=== PATIENT | female | born 1985 | race Caucasian/White ===

== ENCOUNTER 2020-01-29 03:34 | Observation (INO) | payer MEDICAID ==
[~2020-01-29] VITALS: Ht 165 cm; Wt 77.1 kg
[2020-01-29] MEDS ORDERED: CALCIUM (04:04)
[2020-01-29] MEDS ORDERED: PNV1TABL50 PO (04:04)
[2020-01-29] MEDS ORDERED: FERR325T6 PO (04:04)
[2020-01-29 04:47] LABS: CLARITY URINE CLEAR (CLEAR); COLOR URINE YELLOW (YELLOW); KETONES URINE NEGATIVE (NEGATIVE); LEUKOCYTE ESTERASE URINE 2+ (NEGATIVE); NITRITE URINE NEGATIVE (NEGATIVE); OCCULT BLOOD URINE NEGATIVE (NEGATIVE); PROTEIN URINE NEGATIVE (NEGATIVE); SPECIFIC GRAVITY URINE 1.005 (1.005-1.030)
[2020-01-29] MEDS: LACTATED RINGERS 1,000 ML IV SCH ×2 (05:07→05:36)
[2020-01-29 09:44] LABS: BASOPHILS % 0.1 % (0.0-2.0); EOSINOPHILS % 0.1 % (0.0-5.0); HEMATOCRIT. 35.1 % (36.0-48.0); HEMOGLOBIN. 11.7 g/dL (12.0-16.0); LYMPHOCYTES % 16.9 % (20.0-50.0); MEAN CORPUSCULAR HEMOGLOBIN 30.3 pg (28.0-32.0); MEAN CORPUSCULAR VOLUME 90.8 fL (81.0-99.0); MEAN PLATELET VOLUME 10.6 fl (7.4-10.4); NEUTROPHILS % 75.9 % (40.0-76.0); PLATELET 99 x1000/uL (130-400); RED BLOOD CELL COUNT 3.87 mill/uL (4.2-5.4); RED CELL DISTRIBUTION WIDTH 18.8 % (11.6-14.6)
[2020-01-29 09:54] LABS: PROTHROMBIN TIME 10.6 sec (9.6-11.0)
[2020-01-29 12:17] LABS: HEPATITIS B SURFACE ANTIGEN NEGATIVE
[2020-01-30 10:53] LABS: *AMPHETAMINES SCREEN URINE NEGATIVE (NEGATIVE); *BARBITURATES SCREEN URINE NEGATIVE (NEGATIVE); *BENZODIAZEPINES SCREEN URINE NEGATIVE (NEGATIVE); *COCAINE SCREEN URINE NEGATIVE (NEGATIVE); METHADONE URINE SCREEN NEGATIVE (NEGATIVE)
[2020-01-30 10:54] LABS: CANNABINOID URINE SCREEN NEGATIVE (NEGATIVE); OPIATES URINE SCREEN NEGATIVE (NEGATIVE); PHENCYCLIDINE URINE SCREEN NEGATIVE (NEGATIVE)
== END 2020-01-29 11:20 | disposition home or self-care (01) ==
LOC: 8 EST LDRP 03:34
PROVIDERS: ADMIT Obstetrics & Gynecology; ATTEND Obstetrics & Gynecology
DX: O98.513 Other viral diseases complicating pregnancy, third trimester (principal); U07.1 COVID-19; O62.9 Abnormality of forces of labor, unspecified; O26.893 Other specified pregnancy related conditions, third trimester; M54.5 Low back pain; Z3A.38 38 weeks gestation of pregnancy; Z79.899 Other long term (current) drug therapy
CPT/HCPCS: 36415; 76805; 76818; 80305; 81003; 85025; 85610; 85730; 86592; 86703; 86762; 86850; 86900; 86901; 87340; 99281; G0378; U0003; J7120

== ENCOUNTER 2020-02-14 07:46 | Inpatient (IN) | payer MEDICAID ==
[~2020-02-14] VITALS: Ht 160 cm; Wt 77.1 kg
[2020-02-14] MEDS: DEXT 5%/LR + PITOCIN 20UNITS/L 1,000 ML IV SCH ×2 (02:05→13:32)
[~2020-02-14 07:46] MED LIST: CALCIUM; FERR325T6 PO; PNV1TABL50 PO
[2020-02-14] MEDS ORDERED: FENTANYL CITRATE/PF 50MCG/ML 2ML VIAL ONE (08:24)
[2020-02-14] MEDS ORDERED: EPHEDRINE SULFATE 50MG/ML VIAL ONE (08:24)
[2020-02-14] MEDS ORDERED: METOCLOPRAMIDE HCL 10MG/2ML VIAL ONE (08:24)
[2020-02-14] MEDS ORDERED: PHENYLEPHRINE HCL 10 MG/ML 1ML (IV VIAL) IV ONE (08:24)
[2020-02-14] MEDS ORDERED: MORPHINE SULFATE/PF 1MG/ML 10ML AMP ONE (08:24)
[2020-02-14] MEDS ORDERED: OXYTOCIN 10 UNITS/ML 1ML ONE ×2 (08:24→10:05)
[2020-02-14] MEDS ORDERED: ONDANSETRON HCL 4MG/2ML INJ ONE (08:24)
[2020-02-14] MEDS ORDERED: GLYCOPYRROLATE 0.2 MG/ML 2ML VIAL ONE (08:24)
[2020-02-14] MEDS ORDERED: LACTATED RINGERS 1,000 ML IV SCH (08:28)
[2020-02-14] MEDS ORDERED: DEXT 5%/LR + PITOCIN 20UNITS/L 1,000 ML IV SCH (08:28)
[2020-02-14] MEDS ORDERED: RHO(D) IMMUNE GLOBULIN 300 MCG/SYR IM PRN ×2 (08:30→10:30)
[2020-02-14] MEDS ORDERED: CITRIC ACID/SODIUM CITRATE SOLN 30ML UDC PO NR (08:45)
[2020-02-14] MEDS ORDERED: AMPICILLIN 2000MG in SODIUM CHLORIDE 0.9% 100ML IV NR (09:00)
[2020-02-14 09:01] LABS: BASOPHILS % 0.1 % (0.0-2.0); EOSINOPHILS % 0.2 % (0.0-5.0); HEMATOCRIT. 39.2 % (36.0-48.0); LYMPHOCYTES % 29.4 % (20.0-50.0); MEAN CORPUSCULAR HEMOGLOBIN 30.6 pg (28.0-32.0); MEAN CORPUSCULAR VOLUME 92.1 fL (81.0-99.0); MEAN PLATELET VOLUME 9.7 fl (7.4-10.4); MONOCYTES % 6.6 % (2.0-8.0); NEUTROPHILS % 63.7 % (40.0-76.0); PLATELET 175 x1000/uL (130-400); RED BLOOD CELL COUNT 4.26 mill/uL (4.2-5.4); RED CELL DISTRIBUTION WIDTH 18.8 % (11.6-14.6)
[2020-02-14 09:06] LABS: PARTIAL THROMBOPLASTIN TIME 27.7 sec (23.4-31.0); PROTHROMBIN TIME 10.3 sec (9.6-11.0)
[2020-02-14] MEDS ORDERED: CEFAZOLIN SODIUM 1000MG/VIAL ONE (09:18)
[2020-02-14] MEDS ORDERED: KETOROLAC 60MG/2ML VIAL IM ONE (10:09)
[2020-02-14] MEDS ORDERED: DIPHENHYDRAMINE 50MG/ML VIAL ONE (10:09)
[2020-02-14] MEDS ORDERED: LANOLIN OINT 7GM TUBE TOP PRN (10:30)
[2020-02-14] MEDS ORDERED: ONDANSETRON HCL 4MG/2ML INJ IV PRN (10:30)
[2020-02-14] MEDS ORDERED: HEMORRHOIDAL SUPP PR PRN (10:30)
[2020-02-14] MEDS ORDERED: IBUPROFEN 400MG TABLET PO PRN (10:30)
[2020-02-14] MEDS ORDERED: HYDROCODONE/ACETAMINOPHEN 5/325MG TABLET PO PRN (10:30)
[2020-02-14] MEDS ORDERED: BISACODYL 10MG SUPP PR PRN (10:30)
[2020-02-14] MEDS ORDERED: KETOROLAC 30MG/ML VIAL IV SCH (11:30)
[2020-02-14] MEDS ORDERED: NALOXONE HCL 0.4 MG/ML 1ML VIAL IV PRN (11:30)
[2020-02-14] MEDS ORDERED: DIPHENHYDRAMINE 50MG/ML VIAL IV PRN (11:30)
[2020-02-14] MEDS ORDERED: BUTORPHANOL TARTRATE 2 MG/ML VIAL IV PRN (11:30)
[2020-02-14 11:43] LABS: CLARITY URINE CLEAR (CLEAR); COLOR URINE YELLOW (YELLOW); KETONES URINE NEGATIVE (NEGATIVE); LEUKOCYTE ESTERASE URINE 1+ (NEGATIVE); NITRITE URINE NEGATIVE (NEGATIVE); OCCULT BLOOD URINE TRACE (NEGATIVE); PH URINE 7.5 (4.5-8.0); PROTEIN URINE NEGATIVE (NEGATIVE); SPECIFIC GRAVITY URINE 1.007 (1.005-1.030); UROBILINOGEN URINE 0.2 E.U./dL (0.2-1.0)
[2020-02-14 12:24] LABS: *AMPHETAMINES SCREEN URINE NEGATIVE (NEGATIVE); *BARBITURATES SCREEN URINE NEGATIVE (NEGATIVE); *BENZODIAZEPINES SCREEN URINE NEGATIVE (NEGATIVE); *COCAINE SCREEN URINE NEGATIVE (NEGATIVE); CANNABINOID URINE SCREEN NEGATIVE (NEGATIVE); OPIATES URINE SCREEN NEGATIVE (NEGATIVE); PHENCYCLIDINE URINE SCREEN NEGATIVE (NEGATIVE)
[2020-02-14 12:25] LABS: METHADONE URINE SCREEN NEGATIVE (NEGATIVE)
[2020-02-14 14:24] LABS: HEPATITIS B SURFACE ANTIGEN NEGATIVE
[2020-02-14 15:00] VITALS: BP 94/55
[2020-02-14] MEDS ORDERED: AMPICILLIN 1,000 MG in SODIUM CHLORIDE 0.9% 50 ML IV SCH (15:00)
[2020-02-14] MEDS: MAGNESIUM/ALUMINUM HYDROXIDE/SIMETHICONE 30ML UDC PO SCH (17:30)
[2020-02-14 18:09] VITALS: BP 95/52
[2020-02-14 20:00] VITALS: BP 98/53
[2020-02-14] MEDS ORDERED: DIPHENHYDRAMINE 25MG CAPSULE PO PRN (21:00)
[2020-02-14] MEDS: SIMETHICONE 80MG TABLET CHEW PO SCH (21:00)
[2020-02-15 00:01] VITALS: BP 100/52
[2020-02-15 06:35] LABS: BASOPHILS % 0.1 % (0.0-2.0); EOSINOPHILS % 0.3 % (0.0-5.0); HEMATOCRIT. 31.9 % (36.0-48.0); HEMOGLOBIN. 10.6 g/dL (12.0-16.0); LYMPHOCYTES % 16.8 % (20.0-50.0); MEAN CORPUSCULAR HEMOGLOBIN 30.7 pg (28.0-32.0); MEAN PLATELET VOLUME 9.8 fl (7.4-10.4); MONOCYTES % 5.7 % (2.0-8.0); NEUTROPHILS % 77.1 % (40.0-76.0); PLATELET 120 x1000/uL (130-400); RED BLOOD CELL COUNT 3.43 mill/uL (4.2-5.4); RED CELL DISTRIBUTION WIDTH 19.2 % (11.6-14.6)
[2020-02-15 07:30] VITALS: BP 95/44
[2020-02-15] MEDS: FERROUS SULFATE 325MG TABLET PO SCH ×2 (12:30→17:27)
[2020-02-15] MEDS: PRENATAL VIT/FE FUMARATE/FA TABLET PO SCH (17:27)
[2020-02-15] MEDS: SIMETHICONE 80MG TABLET CHEW PO SCH ×2 (17:28→21:33)
[2020-02-15] MEDS: ACETAMINOPHEN WITH CODEINE 300/30MG TABLET PO PRN (17:32)
[2020-02-15 18:08] VITALS: BP_SYST 101; BP_SYST 97; BP_DIAS 45; BP_DIAS 55
[2020-02-15 19:20] VITALS: BP 108/63
[2020-02-15] MEDS: DOCUSATE SODIUM 100MG CAPSULE PO SCH ×2 (21:00→21:33)
[2020-02-15] MEDS: MAGNESIUM/ALUMINUM HYDROXIDE/SIMETHICONE 30ML UDC PO SCH (21:33)
[2020-02-16 04:40] VITALS: BP 105/57
[2020-02-16 08:00] VITALS: BP 94/48
[2020-02-16] MEDS: MAGNESIUM/ALUMINUM HYDROXIDE/SIMETHICONE 30ML UDC PO SCH (08:39)
[2020-02-16] MEDS: SIMETHICONE 80MG TABLET CHEW PO SCH (08:39)
[2020-02-16] MEDS: PRENATAL VIT/FE FUMARATE/FA TABLET PO SCH (08:39)
[2020-02-16] MEDS: FERROUS SULFATE 325MG TABLET PO SCH (08:39)
[2020-02-16] MEDS: ACETAMINOPHEN WITH CODEINE 300/30MG TABLET PO PRN (08:40)
[2020-02-16] MEDS ORDERED: IBUP-2028 PO (13:16)
== END 2020-02-16 14:00 | disposition home or self-care (01) | DRG 540 ==
LOC: ORIP 07:46 → OBSVTOIN 07:46 → 8 EST A/PP 08:22 → 8 EST LDRP 10:31 → 8EST 13:00
PROVIDERS: ADMIT Obstetrics & Gynecology; ATTEND Obstetrics & Gynecology
PROC: 10D00Z1 Extraction of Products of Conception, Low, Open Approach (ICD-10-PCS; principal; 2020-02-14)
DX: O34.211 Maternal care for low transverse scar from previous cesarean delivery (principal); D62 Acute posthemorrhagic anemia; D69.6 Thrombocytopenia, unspecified; O99.02 Anemia complicating childbirth; O99.12 Other diseases of the blood and blood-forming organs and certain disorders involving the immune mechanism complicating childbirth; Z37.0 Single live birth; Z3A.39 39 weeks gestation of pregnancy; Z79.899 Other long term (current) drug therapy
CPT/HCPCS: 36415; 80305; 81003; 85025; 86592; 86703; 86762; 86850; 86900; 87340; 88307; J0290; J0690; J1200; J1885; J2274; J2370; J2405; J2590; J2765; J3010; J3490; J7050